=== PATIENT | female | born 1950 | race Caucasian/White ===

== ENCOUNTER 2021-12-13 08:30 | Inpatient (IN) | payer OTHER ==
[~2021-12-13] VITALS: Ht 167.6 cm; Wt 48.5 kg
[2021-12-13] VITALS (39 sets, daily range): BP systolic 97–131; BP diastolic 40–84
[2021-12-13 09:28] LABS: BASOPHILS % 0.2 % (0.0-2.0); EOSINOPHILS % 0.3 % (0.0-5.0); HEMATOCRIT. 35.8 % (36.0-48.0); LYMPHOCYTES % 8.1 % (20.0-50.0); MEAN CORPUSCULAR HEMOGLOBIN 33.1 pg (28.0-32.0); MEAN CORPUSCULAR VOLUME 98.8 fL (81.0-99.0); MEAN PLATELET VOLUME 7.4 fl (7.4-10.4); MONOCYTES % 3.7 % (2.0-8.0); NEUTROPHILS % 87.7 % (40.0-76.0); PLATELET 359 x1000/uL (130-400); RED BLOOD CELL COUNT 3.62 mill/uL (4.2-5.4); RED CELL DISTRIBUTION WIDTH 12.5 % (11.6-14.6)
[2021-12-13 09:38] LABS: CHLORIDE 101 mEq/L (98-107); PROTHROMBIN TIME 10.3 sec (9.6-11.0)
[2021-12-13] MEDS ORDERED: LEVETIRACETAM 1000MG PREMIX 100 ML IV ONE (10:15)
[2021-12-13] MEDS ORDERED: MANNITOL 20% (20GM/100ML) BAG 500ML PREMIX IV ONE (10:15)
[2021-12-13] MEDS ORDERED: DEXAMETHASONE 4MG/ML 1ML VIAL IV ONE (10:15)
[2021-12-13] MEDS ORDERED: NICARDIPINE 100 MG in SODIUM CHLORIDE 0.9% 60 ML IV PRN (10:30)
[2021-12-13] MEDS ORDERED: IOHEXOL-350 100 ML BOTTLE ONE (10:38)
[2021-12-13] MEDS: DEXT 5%/LACTATED RINGERS 1,000 ML IV SCH (10:47)
[2021-12-13] MEDS ORDERED: MANNITOL 20% 500 ML IV NR (11:00)
[2021-12-13] MEDS: NICARDIPINE 100 MG in SODIUM CHLORIDE 0.9% 60 ML IV PRN (11:10)
[2021-12-13] MEDS: DEXAMETHASONE 4MG/ML 1ML VIAL IV SCH ×3 (12:15→23:35)
[2021-12-13 12:16] LABS: CLARITY URINE CLEAR (CLEAR); COLOR URINE YELLOW (YELLOW); KETONES URINE NEGATIVE (NEGATIVE); LEUKOCYTE ESTERASE URINE NEGATIVE (NEGATIVE); NITRITE URINE NEGATIVE (NEGATIVE); OCCULT BLOOD URINE NEGATIVE (NEGATIVE); PROTEIN URINE NEGATIVE (NEGATIVE); SPECIFIC GRAVITY URINE 1.019 (1.005-1.030); UROBILINOGEN URINE 0.2 E.U./dL (0.2-1.0)
[2021-12-13] MEDS ORDERED: LEVETIRACETAM 500MG PREMIX 100 ML IV SCH (17:00)
[2021-12-13] MEDS: PANTOPRAZOLE SODIUM 40 MG/VIAL IV SCH (18:19)
[2021-12-13] MEDS ORDERED: RISP0.5T65 MT (18:39)
[2021-12-13] MEDS ORDERED: LEVE500T98 MT (18:42)
[2021-12-13] MEDS ORDERED: DONE-53 MT (18:43)
[2021-12-13] MEDS ORDERED: CHOL500063 PO (18:46)
[2021-12-13] MEDS ORDERED: SIMV-43 MT (18:46)
[2021-12-13] MEDS ORDERED: ESCI-7 MT (18:49)
[2021-12-13] MEDS ORDERED: BUPR-46 MT (18:50)
[2021-12-13] MEDS: LEVETIRACETAM 500MG PREMIX 100 ML IV SCH (21:18)
[2021-12-13 23:58] LABS: CREATINE KINASE 211 IU/L (26-192)
[2021-12-14] VITALS (63 sets, daily range): BP systolic 97–141; BP diastolic 46–90
[2021-12-14] MEDS ORDERED: *PATIENT'S OWN MEDICATION STORAGE XX SCH (01:00)
[2021-12-14] MEDS: DEXT 5%/LACTATED RINGERS 1,000 ML IV SCH ×2 (02:58→19:49)
[2021-12-14] MEDS: DEXAMETHASONE 4MG/ML 1ML VIAL IV SCH ×4 (05:39→23:36)
[2021-12-14 05:58] LABS: HEMATOCRIT. 34.1 % (36.0-48.0); HEMOGLOBIN. 11.5 g/dL (12.0-16.0); MEAN CORPUSCULAR HEMOGLOBIN 33.4 pg (28.0-32.0); MEAN CORPUSCULAR VOLUME 99.3 fL (81.0-99.0); MEAN PLATELET VOLUME 8.1 fl (7.4-10.4); PLATELET 335 x1000/uL (130-400); RED BLOOD CELL COUNT 3.43 mill/uL (4.2-5.4); RED CELL DISTRIBUTION WIDTH 12.8 % (11.6-14.6)
[2021-12-14 06:02] LABS: CHLORIDE 102 mEq/L (98-107)
[2021-12-14 06:12] LABS: PHOSPHORUS 4.9 mg/dL (2.5-4.9)
[2021-12-14 08:38] LABS: PLATELET ESTIMATE NORMAL
[2021-12-14] MEDS: LEVETIRACETAM 500MG PREMIX 100 ML IV SCH ×2 (09:08→20:41)
[2021-12-14] MEDS: PANTOPRAZOLE SODIUM 40 MG/VIAL IV SCH (09:08)
[2021-12-15] VITALS (92 sets, daily range): BP systolic 96–196; BP diastolic 46–120
[2021-12-15] MEDS: DEXAMETHASONE 4MG/ML 1ML VIAL IV SCH ×3 (05:35→18:19)
[2021-12-15] MEDS: LEVETIRACETAM 500MG PREMIX 100 ML IV SCH ×2 (08:24→21:30)
[2021-12-15] MEDS: PANTOPRAZOLE SODIUM 40 MG/VIAL IV SCH (08:24)
[2021-12-15] MEDS: DEXT 5%/LACTATED RINGERS 1,000 ML IV SCH (11:45)
[2021-12-16] VITALS (72 sets, daily range): BP systolic 82–199; BP diastolic 42–96
[2021-12-16] MEDS: DEXAMETHASONE 4MG/ML 1ML VIAL IV SCH ×3 (00:08→12:09)
[2021-12-16 03:52] LABS: HEMATOCRIT. 33.2 % (36.0-48.0); HEMOGLOBIN. 11.2 g/dL (12.0-16.0); MEAN CORPUSCULAR HEMOGLOBIN 33.3 pg (28.0-32.0); MEAN CORPUSCULAR VOLUME 98.7 fL (81.0-99.0); MEAN PLATELET VOLUME 7.8 fl (7.4-10.4); PLATELET 294 x1000/uL (130-400); RED BLOOD CELL COUNT 3.36 mill/uL (4.2-5.4); RED CELL DISTRIBUTION WIDTH 12.3 % (11.6-14.6)
[2021-12-16 04:03] LABS: CHLORIDE 103 mEq/L (98-107)
[2021-12-16] MEDS: DEXT 5%/LACTATED RINGERS 1,000 ML IV SCH ×2 (05:22→21:19)
[2021-12-16] MEDS: PANTOPRAZOLE SODIUM 40 MG/VIAL IV SCH (08:53)
[2021-12-16] MEDS: LEVETIRACETAM 500MG PREMIX 100 ML IV SCH ×2 (08:53→21:19)
[2021-12-16 10:13] LABS: PLATELET ESTIMATE NORMAL
[2021-12-17] VITALS (42 sets, daily range): BP systolic 101–174; BP diastolic 45–126
[2021-12-17] MEDS: NICARDIPINE 100 MG in SODIUM CHLORIDE 0.9% 60 ML IV PRN (03:55)
[2021-12-17] MEDS: PANTOPRAZOLE SODIUM 40 MG/VIAL IV SCH (08:44)
[2021-12-17] MEDS: LEVETIRACETAM 500MG PREMIX 100 ML IV SCH ×2 (08:44→20:53)
[2021-12-17] MEDS: DEXT 5%/LACTATED RINGERS 1,000 ML IV SCH (15:42)
[2021-12-17 18:45] LABS: TOTAL IRON BINDING CAPACITY 313 ug/dL (250-450)
[2021-12-17 18:59] LABS: FERRITIN 119 ng/mL (10-291)
[2021-12-17 19:23] LABS: VITAMIN B12 SERUM 1003 pg/mL (211-911)
[2021-12-18] VITALS (15 sets, daily range): BP systolic 92–147; BP diastolic 50–98
[2021-12-18 06:18] LABS: BASOPHILS % 0.1 % (0.0-2.0); EOSINOPHILS % 1.1 % (0.0-5.0); HEMATOCRIT. 41.7 % (36.0-48.0); HEMOGLOBIN. 13.9 g/dL (12.0-16.0); LYMPHOCYTES % 13.3 % (20.0-50.0); MEAN CORPUSCULAR VOLUME 99.2 fL (81.0-99.0); MONOCYTES % 6.5 % (2.0-8.0); PLATELET 256 x1000/uL (130-400); RED CELL DISTRIBUTION WIDTH 12.2 % (11.6-14.6)
[2021-12-18 07:48] LABS: CHLORIDE 102 mEq/L (98-107)
[2021-12-18] MEDS: PANTOPRAZOLE SODIUM 40 MG/VIAL IV SCH (09:00)
[2021-12-18] MEDS: LEVETIRACETAM 500MG PREMIX 100 ML IV SCH ×2 (10:10→21:31)
[2021-12-18] MEDS: DEXT 5%/LACTATED RINGERS 1,000 ML IV SCH ×2 (10:11→23:50)
[2021-12-18] MEDS: KCL 20MEQ/100ML PREMIX 100 ML IV SCH ×2 (11:07→11:08)
[2021-12-18] MEDS ORDERED: KCL 20MEQ/100ML PREMIX 100 ML IV NR (13:00)
[2021-12-18] MEDS: METOCLOPRAMIDE HCL 10MG/2ML VIAL IV SCH ×2 (13:48→18:56)
[2021-12-18] MEDS ORDERED: NICO-645 TP (22:31)
[2021-12-18] MEDS ORDERED: POLY250017 MT (22:31)
[2021-12-18] MEDS ORDERED: MELA1TAB51 PO (22:31)
[2021-12-18] MEDS ORDERED: SENN-257 PO (22:32)
[2021-12-18] MEDS ORDERED: CALC300T4 MT (22:34)
[2021-12-18] MEDS ORDERED: ABIL5 MT (22:35)
[2021-12-18] MEDS ORDERED: DONE10TA11 MT (22:36)
[2021-12-18] MEDS ORDERED: ASPI-1079 PO (22:38)
[2021-12-18] MEDS ORDERED: VITA250012 PO (22:40)
[2021-12-18] MEDS ORDERED: ESCI10TA MT (22:41)
[2021-12-18] MEDS ORDERED: KEPP500 MT (22:41)
[2021-12-18] MEDS ORDERED: SIMV-343 MT (22:42)
[2021-12-18] MEDS ORDERED: BUPR-102 MT (22:43)
[2021-12-19] VITALS (19 sets, daily range): BP systolic 92–141; BP diastolic 46–82
[2021-12-19] MEDS: METOCLOPRAMIDE HCL 10MG/2ML VIAL IV SCH ×4 (01:14→17:20)
[2021-12-19] MEDS: LEVETIRACETAM 500MG PREMIX 100 ML IV SCH ×2 (09:45→20:39)
[2021-12-19] MEDS: PANTOPRAZOLE SODIUM 40 MG/VIAL IV SCH (09:45)
[2021-12-19] MEDS: DEXT 5%/LACTATED RINGERS 1,000 ML IV SCH (09:46)
[2021-12-19 11:37] LABS: BASOPHILS % 0.1 % (0.0-2.0); HEMATOCRIT. 37.3 % (36.0-48.0); HEMOGLOBIN. 12.8 g/dL (12.0-16.0); LYMPHOCYTES % 8.1 % (20.0-50.0); MEAN CORPUSCULAR HEMOGLOBIN 33.1 pg (28.0-32.0); MEAN CORPUSCULAR VOLUME 96.8 fL (81.0-99.0); MONOCYTES % 5.3 % (2.0-8.0); NEUTROPHILS % 85.5 % (40.0-76.0); PLATELET 331 x1000/uL (130-400); RED BLOOD CELL COUNT 3.86 mill/uL (4.2-5.4); RED CELL DISTRIBUTION WIDTH 12.4 % (11.6-14.6)
[2021-12-19 12:25] LABS: CHLORIDE 102 mEq/L (98-107)
[2021-12-19 12:53] LABS: T4 FREE 1.35 ng/dL (0.76-1.46)
[2021-12-20] VITALS (13 sets, daily range): BP systolic 113–165; BP diastolic 48–82
[2021-12-20] MEDS: METOCLOPRAMIDE HCL 10MG/2ML VIAL IV SCH ×4 (00:06→18:00)
[2021-12-20 06:44] LABS: HEMATOCRIT. 36.9 % (36.0-48.0); HEMOGLOBIN. 12.5 g/dL (12.0-16.0); MEAN CORPUSCULAR HEMOGLOBIN 32.6 pg (28.0-32.0); MEAN CORPUSCULAR VOLUME 96.8 fL (81.0-99.0); MEAN PLATELET VOLUME 8.1 fl (7.4-10.4); PLATELET 285 x1000/uL (130-400); RED BLOOD CELL COUNT 3.82 mill/uL (4.2-5.4); RED CELL DISTRIBUTION WIDTH 12.1 % (11.6-14.6)
[2021-12-20 07:18] LABS: PLATELET ESTIMATE NORMAL
[2021-12-20] MEDS: DEXT 5%/LACTATED RINGERS 1,000 ML IV SCH (09:10)
[2021-12-20] MEDS: PANTOPRAZOLE SODIUM 40 MG/VIAL IV SCH (09:24)
[2021-12-20] MEDS: LEVETIRACETAM 500MG PREMIX 100 ML IV SCH ×2 (09:24→21:36)
[2021-12-20 09:36] LABS: CHLORIDE 102 mEq/L (98-107)
[2021-12-20] MEDS ORDERED: MAGNESIUM 2 G PREMIX 50 ML IV SCH (11:00)
[2021-12-20] MEDS ORDERED: POTASSIUM CHLORIDE INJ 40 MEQ in DEXT 5% WATER 500 ML IV SCH (12:00)
[2021-12-20] MEDS ORDERED: ACETAMINOPHEN 325MG TABLET PO PRN (13:00)
[2021-12-20 15:06] LABS: BG BASE EXCESS 2.7 mmol/L (-2.0-2.0); BG CARBOXYHEMOGLOBIN 0.9 % (0.5-1.5); BG DEOXYHEMOGLOBIN 3.4 % (0.0-5.0); BG FRACTION INSPIRED OXYGEN 21; BG METHEMOGLOBIN 0.2 % (0.0-1.5); BG OXYGEN SATURATION 96.6 % (92.0-98.5); BG OXYHEMOGLOBIN 95.5 % (94.0-97.0); BG PCO2 27.6 mmHg (35.0-45.0); BG PH 7.558 (7.350-7.450); BG PO2 77.5 mmHg (75.0-100.0); BG SAMPLE SITE RIGHT RADIAL; BG TOTAL HEMOGLOBIN 12.6 g/dL (12.0-18.0); BG VENT MODE ROOM AIR
[2021-12-20] MEDS ORDERED: VANCOMYCIN 1,000 MG in DEXT 5% WATER 250 ML IV NR (16:00)
[2021-12-20] MEDS: PIPERACILLIN/TAZOBACTAM 3.375 G in DEXTROSE 5% WATER 50 ML IV SCH ×2 (16:23→21:36)
[2021-12-21] VITALS (15 sets, daily range): BP systolic 114–195; BP diastolic 53–87
[2021-12-21] MEDS: METOCLOPRAMIDE HCL 10MG/2ML VIAL IV SCH ×4 (01:18→17:50)
[2021-12-21] MEDS: DEXT 5%/LACTATED RINGERS 1,000 ML IV SCH ×2 (01:37→17:51)
[2021-12-21] MEDS: PIPERACILLIN/TAZOBACTAM 3.375 G in DEXTROSE 5% WATER 50 ML IV SCH ×3 (06:51→21:51)
[2021-12-21 07:19] LABS: HEMATOCRIT. 33.4 % (36.0-48.0); HEMOGLOBIN. 11.4 g/dL (12.0-16.0); MEAN CORPUSCULAR HEMOGLOBIN 32.5 pg (28.0-32.0); MEAN CORPUSCULAR VOLUME 95.3 fL (81.0-99.0); MEAN PLATELET VOLUME 8.2 fl (7.4-10.4); PLATELET 245 x1000/uL (130-400); RED BLOOD CELL COUNT 3.51 mill/uL (4.2-5.4); RED CELL DISTRIBUTION WIDTH 12.4 % (11.6-14.6)
[2021-12-21 07:42] LABS: CHLORIDE 101 mEq/L (98-107)
[2021-12-21] MEDS ORDERED: POTASSIUM CHLORIDE 20MEQ/PACKET PO NR (09:15)
[2021-12-21] MEDS ORDERED: POTASSIUM CHLORIDE 20MEQ/PACKET NG NR (09:30)
[2021-12-21] MEDS: PANTOPRAZOLE SODIUM 40 MG/VIAL IV SCH (09:40)
[2021-12-21] MEDS: LEVETIRACETAM 500MG PREMIX 100 ML IV SCH ×2 (09:41→21:40)
[2021-12-21] MEDS ORDERED: AMLODIPINE 10MG TABLET PO SCH (13:45)
[2021-12-21] MEDS: AMLODIPINE 10MG TABLET PO SCH (13:51)
[2021-12-21] MEDS ORDERED: VANCOMYCIN 750MG PREMIX 150 ML IV SCH (16:00)
[2021-12-22] VITALS (13 sets, daily range): BP systolic 118–150; BP diastolic 53–78
[2021-12-22] MEDS: METOCLOPRAMIDE HCL 10MG/2ML VIAL IV SCH ×4 (00:23→18:31)
[2021-12-22] MEDS: PIPERACILLIN/TAZOBACTAM 3.375 G in DEXTROSE 5% WATER 50 ML IV SCH ×2 (05:31→13:44)
[2021-12-22 07:55] LABS: HEMATOCRIT. 31.2 % (36.0-48.0); HEMOGLOBIN. 10.7 g/dL (12.0-16.0); MEAN CORPUSCULAR VOLUME 95.8 fL (81.0-99.0); MEAN PLATELET VOLUME 8.6 fl (7.4-10.4); PLATELET 253 x1000/uL (130-400); RED BLOOD CELL COUNT 3.25 mill/uL (4.2-5.4); RED CELL DISTRIBUTION WIDTH 12.3 % (11.6-14.6)
[2021-12-22] MEDS: AMLODIPINE 10MG TABLET PO SCH (08:26)
[2021-12-22] MEDS: PANTOPRAZOLE SODIUM 40 MG/VIAL IV SCH (08:26)
[2021-12-22] MEDS: LEVETIRACETAM 500MG PREMIX 100 ML IV SCH ×2 (08:27→21:15)
[2021-12-22 09:36] LABS: CHLORIDE 100 mEq/L (98-107)
[2021-12-22] MEDS: DEXT 5%/LACTATED RINGERS 1,000 ML IV SCH (11:37)
[2021-12-22 13:01] LABS: PLATELET ESTIMATE NORMAL
[2021-12-22] MEDS ORDERED: POTASSIUM CHLORIDE INJ 40 MEQ in DEXT 5% WATER 250 ML IV ONE (14:15)
[2021-12-22 14:31] LABS: PLATELET ESTIMATE NORMAL
[2021-12-22] MEDS: KCL 20MEQ/100ML X 2 FOR TOTAL KCL 40MEQ/200ML IV SCH ×2 (16:04→18:31)
[2021-12-22] MEDS: CEFTRIAXONE 1,000 MG in DEXTROSE 5% WATER 50 ML IV SCH (18:31)
[2021-12-22] MEDS ORDERED: NA PHOS,M-B/NA PHOS,DI-BA ENEMA 118ML PR ONE (19:30)
[2021-12-22] MEDS: ACETAMINOPHEN 325MG TABLET PO PRN (21:16)
[2021-12-23] VITALS (12 sets, daily range): BP systolic 104–154; BP diastolic 48–75
[2021-12-23] MEDS: METOCLOPRAMIDE HCL 10MG/2ML VIAL IV SCH ×4 (00:43→18:07)
[2021-12-23] MEDS: DEXT 5%/LACTATED RINGERS 1,000 ML IV SCH ×2 (03:50→08:13)
[2021-12-23 05:27] LABS: BASOPHILS % 0.1 % (0.0-2.0); EOSINOPHILS % 0.9 % (0.0-5.0); HEMATOCRIT. 33.4 % (36.0-48.0); HEMOGLOBIN. 11.1 g/dL (12.0-16.0); LYMPHOCYTES % 8.6 % (20.0-50.0); MEAN CORPUSCULAR HEMOGLOBIN 32.4 pg (28.0-32.0); MEAN PLATELET VOLUME 8.4 fl (7.4-10.4); MONOCYTES % 10.2 % (2.0-8.0); NEUTROPHILS % 80.2 % (40.0-76.0); PLATELET 251 x1000/uL (130-400); RED BLOOD CELL COUNT 3.44 mill/uL (4.2-5.4); RED CELL DISTRIBUTION WIDTH 12.8 % (11.6-14.6)
[2021-12-23] MEDS: AMLODIPINE 10MG TABLET PO SCH (08:07)
[2021-12-23] MEDS: PANTOPRAZOLE SODIUM 40 MG/VIAL IV SCH (08:07)
[2021-12-23] MEDS: LEVETIRACETAM 500MG PREMIX 100 ML IV SCH ×2 (08:08→21:47)
[2021-12-23 08:20] LABS: CHLORIDE 104 mEq/L (98-107)
[2021-12-23] MEDS ORDERED: LACTULOSE 20G/30ML UDC PO NR (14:30)
[2021-12-23] MEDS ORDERED: NA PHOS,M-B/NA PHOS,DI-BA ENEMA 118ML PR NR (14:30)
[2021-12-23] MEDS: DILTIAZEM HCL 30MG TABLET PO SCH (18:07)
[2021-12-23] MEDS: POTASSIUM CHLORIDE 20MEQ/PACKET PO SCH (18:07)
[2021-12-23] MEDS: CEFTRIAXONE 1,000 MG in DEXTROSE 5% WATER 50 ML IV SCH (18:08)
[2021-12-24] VITALS (14 sets, daily range): BP systolic 106–158; BP diastolic 44–87
[2021-12-24] MEDS: METOCLOPRAMIDE HCL 10MG/2ML VIAL IV SCH ×4 (00:42→16:43)
[2021-12-24] MEDS: PANTOPRAZOLE SODIUM 40 MG/VIAL IV SCH (08:19)
[2021-12-24] MEDS: POTASSIUM CHLORIDE 20MEQ/PACKET PO SCH ×3 (08:19→16:42)
[2021-12-24] MEDS: LEVETIRACETAM 500MG PREMIX 100 ML IV SCH ×2 (08:19→21:38)
[2021-12-24] MEDS: DILTIAZEM HCL 30MG TABLET PO SCH ×3 (08:20→16:44)
[2021-12-24] MEDS: AMLODIPINE 2.5MG TABLET PO SCH (08:20)
[2021-12-24 08:22] LABS: HEMATOCRIT. 28.7 % (36.0-48.0); HEMOGLOBIN. 9.7 g/dL (12.0-16.0); MEAN CORPUSCULAR HEMOGLOBIN 32.7 pg (28.0-32.0); MEAN CORPUSCULAR VOLUME 96.5 fL (81.0-99.0); MEAN PLATELET VOLUME 7.6 fl (7.4-10.4); PLATELET 258 x1000/uL (130-400); RED BLOOD CELL COUNT 2.98 mill/uL (4.2-5.4); RED CELL DISTRIBUTION WIDTH 13.1 % (11.6-14.6)
[2021-12-24 11:03] LABS: CHLORIDE 104 mEq/L (98-107)
[2021-12-24] MEDS: DEXT 5%/LACTATED RINGERS 1,000 ML IV SCH (12:15)
[2021-12-24 13:48] LABS: PLATELET ESTIMATE NORMAL
[2021-12-24] MEDS: ACETAMINOPHEN 325MG TABLET PO PRN (16:43)
[2021-12-24] MEDS: CEFTRIAXONE 1,000 MG in DEXTROSE 5% WATER 50 ML IV SCH (16:43)
[2021-12-24] MEDS ORDERED: MINERAL OIL ENEMA 133ML PR NR (19:00)
[2021-12-25] VITALS (14 sets, daily range): BP systolic 112–161; BP diastolic 44–87
[2021-12-25] MEDS: DEXT 5%/LACTATED RINGERS 1,000 ML IV SCH ×2 (05:33→21:45)
[2021-12-25] MEDS: METOCLOPRAMIDE HCL 10MG/2ML VIAL IV SCH ×4 (05:33→16:37)
[2021-12-25 07:27] LABS: BASOPHILS % 0.2 % (0.0-2.0); EOSINOPHILS % 1.5 % (0.0-5.0); HEMATOCRIT. 30.2 % (36.0-48.0); HEMOGLOBIN. 10.1 g/dL (12.0-16.0); LYMPHOCYTES % 7.2 % (20.0-50.0); MEAN CORPUSCULAR HEMOGLOBIN 33.1 pg (28.0-32.0); MEAN CORPUSCULAR VOLUME 98.9 fL (81.0-99.0); MEAN PLATELET VOLUME 7.8 fl (7.4-10.4); MONOCYTES % 5.7 % (2.0-8.0); NEUTROPHILS % 85.4 % (40.0-76.0); PLATELET 263 x1000/uL (130-400); RED BLOOD CELL COUNT 3.05 mill/uL (4.2-5.4); RED CELL DISTRIBUTION WIDTH 12.8 % (11.6-14.6)
[2021-12-25] MEDS: LEVETIRACETAM 500MG PREMIX 100 ML IV SCH ×2 (07:53→21:44)
[2021-12-25] MEDS: DILTIAZEM HCL 30MG TABLET PO SCH ×3 (07:54→16:37)
[2021-12-25] MEDS: AMLODIPINE 2.5MG TABLET PO SCH (07:54)
[2021-12-25] MEDS: PANTOPRAZOLE SODIUM 40 MG/VIAL IV SCH (07:54)
[2021-12-25] MEDS: POTASSIUM CHLORIDE 20MEQ/PACKET PO SCH ×3 (07:55→16:37)
[2021-12-25] MEDS: BISACODYL 10MG SUPP PR SCH (08:25)
[2021-12-25 09:19] LABS: CHLORIDE 103 mEq/L (98-107)
[2021-12-25] MEDS: METOPROLOL TARTRATE 25MG TABLET PO SCH ×2 (11:51→21:44)
[2021-12-25] MEDS: CEFTRIAXONE 1,000 MG in DEXTROSE 5% WATER 50 ML IV SCH (16:37)
[2021-12-26] VITALS (11 sets, daily range): BP systolic 13–155; BP diastolic 57–82
[2021-12-26] MEDS: METOCLOPRAMIDE HCL 10MG/2ML VIAL IV SCH ×4 (00:26→17:00)
[2021-12-26 06:47] LABS: HEMATOCRIT. 30.5 % (36.0-48.0); HEMOGLOBIN. 10.1 g/dL (12.0-16.0); MEAN CORPUSCULAR HEMOGLOBIN 33.1 pg (28.0-32.0); MEAN CORPUSCULAR VOLUME 99.7 fL (81.0-99.0); MEAN PLATELET VOLUME 7.2 fl (7.4-10.4); PLATELET 285 x1000/uL (130-400); RED BLOOD CELL COUNT 3.06 mill/uL (4.2-5.4); RED CELL DISTRIBUTION WIDTH 12.8 % (11.6-14.6)
[2021-12-26 07:27] LABS: CHLORIDE 103 mEq/L (98-107)
[2021-12-26] MEDS: PANTOPRAZOLE SODIUM 40 MG/VIAL IV SCH (08:27)
[2021-12-26] MEDS: METOPROLOL TARTRATE 25MG TABLET PO SCH ×2 (08:27→22:35)
[2021-12-26] MEDS: POTASSIUM CHLORIDE 20MEQ/PACKET PO SCH ×3 (08:28→17:00)
[2021-12-26] MEDS: AMLODIPINE 2.5MG TABLET PO SCH (08:28)
[2021-12-26] MEDS: BISACODYL 10MG SUPP PR SCH (08:28)
[2021-12-26] MEDS: DILTIAZEM HCL 30MG TABLET PO SCH ×3 (08:28→17:00)
[2021-12-26] MEDS: DEXT 5%/LACTATED RINGERS 1,000 ML IV SCH (15:30)
[2021-12-26] MEDS: CEFTRIAXONE 1,000 MG in DEXTROSE 5% WATER 50 ML IV SCH (17:00)
[2021-12-26 19:27] LABS: PLATELET ESTIMATE NORMAL
[2021-12-27] VITALS: BP 131/68
[2021-12-27] MEDS: METOCLOPRAMIDE HCL 10MG/2ML VIAL IV SCH ×3 (01:59→12:01)
[2021-12-27 06:00] VITALS: BP 166/80
[2021-12-27 08:00] VITALS: BP 149/72
[2021-12-27] MEDS: METOPROLOL TARTRATE 25MG TABLET PO SCH (08:02)
[2021-12-27] MEDS: BISACODYL 10MG SUPP PR SCH (08:02)
[2021-12-27] MEDS: PANTOPRAZOLE SODIUM 40 MG/VIAL IV SCH (08:02)
[2021-12-27] MEDS: POTASSIUM CHLORIDE 20MEQ/PACKET PO SCH ×2 (08:02→12:01)
[2021-12-27] MEDS: DILTIAZEM HCL 30MG TABLET PO SCH ×2 (08:02→12:01)
[2021-12-27 08:05] LABS: HEMATOCRIT. 31.7 % (36.0-48.0); HEMOGLOBIN. 10.8 g/dL (12.0-16.0); MEAN PLATELET VOLUME 7.6 fl (7.4-10.4); PLATELET 331 x1000/uL (130-400); RED BLOOD CELL COUNT 3.27 mill/uL (4.2-5.4)
[2021-12-27] MEDS: DEXT 5%/LACTATED RINGERS 1,000 ML IV SCH (08:06)
[2021-12-27] MEDS: AMLODIPINE 2.5MG TABLET PO SCH (08:06)
[2021-12-27 09:08] LABS: CHLORIDE 102 mEq/L (98-107)
[2021-12-27 10:00] VITALS: BP 172/86
[2021-12-27 11:19] LABS: BG BASE EXCESS 3.3 mmol/L (-2.0-2.0); BG CARBOXYHEMOGLOBIN 0.3 % (0.5-1.5); BG DEOXYHEMOGLOBIN 12.4 % (0.0-5.0); BG FRACTION INSPIRED OXYGEN 100; BG HCO3 ACT 26.1 mmol/L (22.0-26.0); BG METHEMOGLOBIN 0.3 % (0.0-1.5); BG OXYGEN SATURATION 87.5 % (92.0-98.5); BG PCO2 33.3 mmHg (35.0-45.0); BG PH 7.512 (7.350-7.450); BG PO2 51.1 mmHg (75.0-100.0); BG SAMPLE SITE RIGHT RADIAL; BG TOTAL HEMOGLOBIN 11.4 g/dL (12.0-18.0); BG VENT MODE MASK - NRB
[2021-12-27 12:00] VITALS: BP 138/74
[2021-12-27 20:09] LABS: PLATELET ESTIMATE NORMAL
== END 2021-12-27 17:52 | DRG 64 ==
LOC: ER 08:30 → MICUNO 11:57 → ENRESERV 12:56 → MICUSO 12-17 06:48 → 5EST 12-17 20:09 → CVICU 12-27 14:37
PROVIDERS: ADMIT Internal Medicine; ATTEND Internal Medicine
PROC: 4A00X4Z Measurement of Central Nervous Electrical Activity, External Approach (ICD-10-PCS; 2021-12-26)
PROC: 0BH17EZ Insertion of Endotracheal Airway into Trachea, Via Natural or Artificial Opening (ICD-10-PCS; principal; 2021-12-27)
PROC: 5A1935Z Respiratory Ventilation, Less than 24 Consecutive Hours (ICD-10-PCS; 2021-12-27)
DX: I61.5 Nontraumatic intracerebral hemorrhage, intraventricular (principal); A41.51 Sepsis due to Escherichia coli [E. coli]; J96.01 Acute respiratory failure with hypoxia; G93.40 Encephalopathy, unspecified; K56.49 Other impaction of intestine; I47.1 Supraventricular tachycardia; I60.9 Nontraumatic subarachnoid hemorrhage, unspecified; I62.00 Nontraumatic subdural hemorrhage, unspecified; R00.1 Bradycardia, unspecified; R13.11 Dysphagia, oral phase; F03.90 Unspecified dementia, unspecified severity, without behavioral disturbance, psychotic disturbance, mood disturbance, and anxiety; E87.6 Hypokalemia; D64.9 Anemia, unspecified; E78.5 Hyperlipidemia, unspecified; Z74.01 Bed confinement status
CPT/HCPCS: 31500; 36415; 36600; 70496; 71045; 74018; 80048; 80053; 81003; 82270; 82375; 82550; 82607; 82728; 82746; 82805; 82962; 83540; 83550; 83605; 83735; 84100; 84145; 84439; 84443; 84481; 84484; 85025; 85044; 87077; 87186; 92610; 93005; 93306; 93970; 95816; 97162; 97530; 99291; A6261; C1893; C9113; J0696; J1100; J1953; J2543; J2765; J3370; J3475; J3480; J3490; J7050; J7060; Q9967; A4315